=== PATIENT | female | born 1970 | race Caucasian/White ===

== ENCOUNTER 2016-05-15 06:13 | Day surgery (SDC) | payer BC ==
[~2016-05-15] VITALS: Ht 162.6 cm; Wt 143.0 kg
[~2016-05-15 06:13] MED LIST: KEFLEX-DPS500 MG PO; PERCOCET 5 DPS1 TAB PO; ZOFRAN ODT4 MG PO
--- NOTE | 2016-06-04 10:44 | OR ---
ADMIT: 05/15/2016 RM/LOC: [facility] MR#: [id number] [address] [id number] DUYEN DOBBINS [address] [place] [id number] Operative/Delivery Room Report SEX: F AGE: 46 : 1970 SURGERY DATE: 05/15/2016 SURGEON: Dominik Sanchez MD PREOPERATIVE DIAGNOSIS: Left thigh subcutaneous lipoma. POSTOPERATIVE DIAGNOSIS: Left anterior thigh subcutaneous lipoma, 10 cm in diameter. PROCEDURE PERFORMED: Excision of left anterior thigh subcutaneous lipoma, 10 cm in diameter. SENIOR SOFTWARE QA ENGINEER: FIFI Haile ANESTHESIA: Local MAC. ESTIMATED BLOOD LOSS: Less than 10 mL. DESCRIPTION OF PROCEDURE: After appropriate informed consent was obtained, the patient was brought to the operating room. IV sedation was provided. Her left thigh was prepped and draped in a sterile fashion. A mixture of 1% lidocaine with epinephrine and course of Marcaine plain was injected in the skin and deep tissues. An incision was made directly over this anterior thigh lipoma. Has had numerous lobules or fingers to it, took a while to kind of dissect each of these little lobules or fingers of fat out. I was able to dissect the entirety of this 10 cm lobulated lipoma, this was taken all the way down to the level of the anterior fascia of the thigh. I did not go underneath the fascia. With the entire lipoma removed, the wound was then copiously irrigated out with warm saline. Everything appeared hemostatic. The wound was then closed with 3-0 Vicryl in the dermal layer and running 4-0 Monocryl in the subcuticular layer, and then Dermabond over the skin. FIFI Haile, assisted in this entire procedure. His help was necessary for retraction. Dominik Sanchez MD/ modl JOB #: [id number] CC: Dominik Sanchez, Attending Physician Shree Florez, Family Physician
== END 2016-05-15 10:00 | disposition home or self-care (01) ==
LOC: SSS 06:13
PROC: 0HBJXZX Excision of Left Upper Leg Skin, External Approach, Diagnostic (ICD-10-PCS; principal; 2016-05-15)
DX: D17.24 Benign lipomatous neoplasm of skin and subcutaneous tissue of left leg (principal); J45.909 Unspecified asthma, uncomplicated; G47.30 Sleep apnea, unspecified; Z99.81 Dependence on supplemental oxygen; Z79.899 Other long term (current) drug therapy; Z88.8 Allergy status to other drugs, medicaments and biological substances; Z98.890 Other specified postprocedural states